=== PATIENT | male | born 1980 | race Caucasian/White ===

== ENCOUNTER → 2023-03-19 | Outpatient (CLI) | payer BC, SELFPAY ==
[2023-03-19 11:26] LABS: Hematocrit 48.3 % (40-54); Hemoglobin 15.4 g/dL (13.0-16.5)
[2023-03-19 12:09] LABS: AST(SGOT) 17 U/L (15-37); Alanine Aminotransfer ALT/SGPT 34 U/L (16-61); Albumin, Serum 3.8 g/dL (3.2-5.0); Alkaline Phosphatase 78 U/L (45-117); Anion Gap 6 (5-15); BUN 25 mg/dL (7-18); Chloride 103 mmol/L (98-107); Cholesterol 201 mg/dL (200); Creatinine, Serum 1.04 mg/dL (0.70-1.30); EST Glomerular Filtration Rate 83 mL/min (>60); Est Glom Filt Rate - Afr Amer 100 mL/min (>60); Follicle Stimulating Hormone 3.1 mIU/mL; Globulin 3.8 g/dL (2.2-4.2); Glucose 229 mg/dL (74-106); High Density Lipoprotein 34 mg/dL; Luteinizing Hormone 4.3 mIU/mL; PSA,Total - Annual Screen 1.01 ng/mL (0.00-4.00); Potassium 4.3 mmol/L (3.5-5.1); Protein, Total 7.6 g/dL (6.4-8.2); Sodium Level 136 mmol/L (136-145); Thyroid Stim Hormone (TSH) 1.14 uIU/mL (0.358-3.74); Triglycerides 333 mg/dL; Very Low Density Lipoprotein 67 mg/dL (5-40)
[2023-03-25 09:09] LABS: Sex Hormone-binding Globulin 14.6 nmol/L (16.5-55.9); Testosterone, % Free 2.56 % (1.50-4.20); Testosterone, Free 6.14 ng/dL (5.00-21.00); Testosterone, Total 240 ng/dL (264-916)
== END | disposition home or self-care (01) ==
LOC: LAB 10:55
PROVIDERS: Referring Provider Registered Nurse; Visit Provider Registered Nurse
DX: E29.1 Testicular hypofunction (principal); R53.83 Other fatigue; R68.82 Decreased libido; R63.5 Abnormal weight gain; R39.16 Straining to void; Z12.5 Encounter for screening for malignant neoplasm of prostate
CPT/HCPCS: 36415; 80053; 80061; 82627; 82670; 83001; 83002; 84146; 84153; 84270; 84402; 84403; 84443; 85014; 85018; 82626; G0103

== ENCOUNTER → 2023-08-11 | Outpatient (CLI) | payer BC, SELFPAY ==
[2023-08-11 13:51] LABS: Hemoglobin 15.8 g/dL (13.0-16.5)
[2023-08-11 15:16] LABS: ALB/GLOB Ratio 0.9 RATIO (0.9-2.4); AST(SGOT) 25 U/L (15-37); Alanine Aminotransfer ALT/SGPT 50 U/L (16-61); Albumin, Serum 3.7 g/dL (3.2-5.0); Alkaline Phosphatase 74 U/L (45-117); Anion Gap 6 (5-15); BUN 20 mg/dL (7-18); BUN/Creat Ratio 16.8 RATIO (10-20); Calcium,Total 9.1 mg/dL (8.5-10.1); Chloride 103 mmol/L (98-107); Cholesterol 155 mg/dL (200); Creatinine, Serum 1.19 mg/dL (0.70-1.30); EST Glomerular Filtration Rate 71 mL/min (>60); Est Glom Filt Rate - Afr Amer 86 mL/min (>60); Estradiol 49.6 pg/mL; Follicle Stimulating Hormone < 0.2 mIU/mL; Globulin 3.9 g/dL (2.2-4.2); Glucose 208 mg/dL (74-106); High Density Lipoprotein 24 mg/dL; Luteinizing Hormone < 0.2 mIU/mL; Potassium 4.2 mmol/L (3.5-5.1); Prolactin 8.6 ng/mL; Protein, Total 7.6 g/dL (6.4-8.2); Sodium Level 136 mmol/L (136-145); Thyroid Stim Hormone (TSH) 0.97 uIU/mL (0.358-3.74); Triglycerides 185 mg/dL; Very Low Density Lipoprotein 37 mg/dL (5-40)
[2023-08-20 18:07] LABS: Sex Hormone-binding Globulin 13.3 nmol/L (16.5-55.9); Testosterone, % Free 4.55 % (1.50-4.20); Testosterone, Free 58.51 ng/dL (5.00-21.00); Testosterone, Total 1286 ng/dL (264-916)
== END | disposition home or self-care (01) ==
PROVIDERS: Referring Provider Registered Nurse; Visit Provider Registered Nurse
DX: E29.1 Testicular hypofunction (principal); R53.83 Other fatigue; Z12.5 Encounter for screening for malignant neoplasm of prostate; R68.82 Decreased libido; R63.5 Abnormal weight gain; R35.0 Frequency of micturition; R39.16 Straining to void
CPT/HCPCS: 36415; 80053; 80061; 82627; 82670; 83001; 83002; 84146; 84270; 84402; 84403; 84443; 85014; 85018; 82626

== ENCOUNTER 2024-03-16 13:11 | Emergency (ER) | payer BC, SELFPAY ==
[2024-03-16 13:12] VITALS: BP 180/99; PULSE 117; RESP 18; TEMP 38.4; O2SAT 97; BMI 32.5
[2024-03-16 13:14] VITALS: BP 171/93; PULSE 113; RESP 25; TEMP 38.4; O2SAT 94
[2024-03-16 14:14] VITALS: BP 162/99; PULSE 121; RESP 21; O2SAT 95
--- NOTE | 2024-03-16 14:29 | EDS_ITS ---
HPI History of Present Illness Chief Complaint: Hypertension Informant: patient and spouse/S.O. Narrative Narrative: 43-year-old male presenting to the emergency room with a chief complaint of hypertension and tachycardia and fever. Patient states that he went to have a cataract removed as outpatient. He states that when they took his vital signs he was noted to be tachycardic and hypertensive. They did take his temperature and he was noted to be 102 degrees. He notes recently he has had congestion and cough. He denies any ear pain facial pain sore throat diarrhea vomiting or rash. No significant headache or neck pain. No sick contacts at home. He states he is otherwise been a very healthy individual with no history of hypertension. He denies any chest pain. [facility] Medical History (Updated 03/16/24 @ 14:[address] Matty Camilo DO) Cataract, right eye Allergy/AdvReac Type Severity Reaction Status Date / Time No Known Allergies Allergy Verified 03/16/24 13:12 Social History Smoking Status: Never smoker ROS ROS ED Constitutional Constitutional ED: Reports fever(s); Denies chills or weight loss Eyes Eyes: Denies change in vision or diplopia ENT ENT ED: Reports other Details: Nasal congestion ; Denies ear pain, rhinorrhea or sore throat Cardiovascular Cardiovascular: Denies chest pain, orthopnea, palpitations or racing heartbeat Respiratory/Chest Respiratory/Chest: Reports cough and sputum; Denies dyspnea or orthopnea Gastrointestinal Gastrointestinal: Denies abdominal pain, diarrhea, nausea or vomiting Genitourinary Genitourinary ED: Denies dysuria, hematuria or urinary frequency Musculoskeletal Musculoskeletal: Denies arthralgias or myalgias Integumentary Denies abscess or rash Neurologic Neurologic: Denies headache(s), paresthesias or weakness Psychiatric Psychiatric: Denies anxiety, depression, suicidal ideation or suicidal thoughts Endocrine Endocrinology: Denies polydipsia, polyphagia or polyuria Allergic/Immunologic Allergic/Immunologic ED: Denies mouth swelling, tongue swelling or urticaria EXAM Physical Exam Const Vital Signs: 03/16/24 13:11 03/16/24 13:12 03/16/24 13:14 Temperature 101.2 F H 101.2 F H Temperature Source Oral Oral Pulse Rate 117 H 113 H Respiratory Rate 18 25 H Respiratory Effort Normal Non-Labored Respiratory Pattern Normal Blood Pressure 180/99 H 171/93 H Blood Pressure Mean 126 119 Pulse Ox 97 94 Oxygen Delivery Method Room Air Room Air 03/16/24 14:14 Temperature Temperature Source Pulse Rate 121 H Respiratory Rate 21 H Respiratory Effort Respiratory Pattern Blood Pressure 162/99 H Blood Pressure Mean 120 Pulse Ox 95 Oxygen Delivery Method Room Air Positive well nourished and well developed General Appearance ED: well developed and NAD HEENT Reports normocephalic, head/scalp atraumatic and moist mucous membranes Eyes PERRL and EOMs intact bilaterally Neck no lymphadenopathy, supple and no JVD Resp normal respiratory effort and clear to auscultation bilaterally Cardio regular rate, regular rhythm and no murmurs GI normal to inspection, nondistended, normoactive bowel sounds and non-tender Palpation: soft Back/Spine no CVA tenderness and normal ROM Extremity normal to inspection General Extremety ED: Negative for edema General Extremity: Negative for edema Neuro oriented x3 and CN's II-XII intact bilaterally Sensorium / Orientation: alert Motor Exam: strength 5/5 throughout Psych mental status grossly normal Mood & Affect: Negative for depressed or tearful Skin no rashes or lesions noted and no wounds Discharge Plan Triage Chief Complaint: Hypertension ED Provider: Matty Camilo Dx/Rx/DC Orders Primary Care Provider: Care Physician,No Primary Referrals: Care Physician,No Primary [Primary Care Provider] - Print Language: Frisian
[2024-03-16] MEDS: Ibuprofen 600 MG Tablet PO (14:31)
[2024-03-16] MEDS: Acetaminophen 325 MG Tablet 650 MG PO (14:32)
[2024-03-16 14:34] VITALS: BP 141/109; PULSE 113; RESP 28; TEMP 38.4; O2SAT 98
--- NOTE | 2024-03-16 14:41 | RAD_ITS ---
STUDY: X-RAY CHEST REASON FOR EXAM: Male, 43 years old. Fever and cough TECHNIQUE: PA and lateral views of the chest. COMPARISON: None. FINDINGS: EKG electrodes are seen. Right upper lobe consolidation. Radiographic follow-up recommended. There is no demonstrated pleural abnormality. Normal size heart. Normal mediastinum and marie. Normal visualized pulmonary arteries. Normal visualized aortic arch and descending thoracic aorta. Normal visualized thoracic spine. Normal visualized ribs, clavicles, and shoulders. There is no demonstrated abnormality of the visualized soft tissue structures of the upper abdomen. RAD/Chest PA and Lateral IMPRESSION: Right upper lobe consolidation. Radiographic follow-up is recommended. Electronically Signed: Rufino Rivera MD at 14:55 EDT ,
[2024-03-16 15:00] VITALS: BP 126/100; PULSE 108; RESP 29; TEMP 38.3; O2SAT 94
--- NOTE | 2024-03-16 16:16 | EX.ED.DYSGE1 ---
HPI History of Present Illness Chief Complaint: Hypertension Informant: patient and spouse/S.O. Narrative Narrative: 43-year-old male referred to the emergency department for outpatient surgical center. Patient went in to have a right cataract removal. He was found to be hypertensive tachycardic and eventually febrile. He notes several days of cough and congestion. He denies dyspnea. No vomiting no diarrhea no sore throat no rashes. He states he is otherwise a very healthy individual currently taking medications. [facility] Medical History Cataract, right eye Home Medications ?Medication ?Instructions ?Recorded ?Last Taken ?Type albuterol sulfate 90 mcg/actuation 2 puff inhalation Q4H PRN PRN 03/16/24 Unknown Rx aerosol inhaler (Ventolin HFA) Wheezing ##1 doxycycline monohydrate 100 mg 100 mg PO BID #20 CAPSULES 03/16/24 Unknown Rx capsule Allergy/AdvReac Type Severity Reaction Status Date / Time No Known Allergies Allergy Verified 03/16/24 13:12 Social History Smoking Status: Never smoker ROS ROS ED Constitutional Constitutional ED: Reports fever(s); Denies chills or weight loss Eyes Eyes: Denies change in vision or diplopia ENT ENT ED: Reports other Details: Congestion ; Denies ear pain, rhinorrhea or sore throat Cardiovascular Cardiovascular: Denies chest pain, orthopnea, palpitations or racing heartbeat Respiratory/Chest Respiratory/Chest: Reports cough and sputum; Denies dyspnea or orthopnea Gastrointestinal Gastrointestinal: Denies abdominal pain, diarrhea, nausea or vomiting Genitourinary Genitourinary ED: Denies dysuria, hematuria or urinary frequency Musculoskeletal Musculoskeletal: Denies arthralgias or myalgias Integumentary Denies abscess or rash Neurologic Neurologic: Denies headache(s) or weakness Psychiatric Psychiatric: Denies anxiety, depression, suicidal ideation or suicidal thoughts Endocrine Endocrinology: Denies polydipsia, polyphagia or polyuria Allergic/Immunologic Allergic/Immunologic ED: Denies mouth swelling, tongue swelling or urticaria EXAM Physical Exam Const Vital Signs: 03/16/24 13:11 03/16/24 13:12 03/16/24 13:14 Temperature 101.2 F H 101.2 F H Temperature Source Oral Oral Pulse Rate 117 H 113 H Respiratory Rate 18 25 H Respiratory Effort Normal Non-Labored Respiratory Pattern Normal Blood Pressure 180/99 H 171/93 H Blood Pressure Mean 126 119 Pulse Ox 97 94 Oxygen Delivery Method Room Air Room Air 03/16/24 14:14 03/16/24 14:34 03/16/24 15:00 Temperature 101.1 F H 101 F H Temperature Source Oral Oral Pulse Rate 121 H 113 H 108 H Respiratory Rate 21 H 28 H 29 H Respiratory Effort Respiratory Pattern Blood Pressure 162/99 H 141/109 H 126/100 H Blood Pressure Mean 120 119 108 Pulse Ox 95 98 94 Oxygen Delivery Method Room Air Room Air Room Air Positive well nourished and well developed General Appearance ED: well developed and NAD HEENT Reports normocephalic, head/scalp atraumatic and moist mucous membranes Eyes PERRL and EOMs intact bilaterally Neck no lymphadenopathy, supple and no JVD Resp normal respiratory effort and clear to auscultation bilaterally Cardio regular rate, regular rhythm and no murmurs Rate: tachycardic GI normal to inspection, nondistended, normoactive bowel sounds and non-tender Palpation: soft Back/Spine no CVA tenderness and normal ROM Extremity normal to inspection General Extremety ED: Negative for edema General Extremity: Negative for edema Neuro oriented x3 and CN's II-XII intact bilaterally Sensorium / Orientation: alert Motor Exam: strength 5/5 throughout Psych mental status grossly normal Mood & Affect: Negative for depressed or tearful Skin no rashes or lesions noted and no wounds MDM MDM MDM Narrative Medical decision making narrative: Differential diagnosis includes viral syndrome pneumonia pleural effusion Patient is relatively asymptomatic. I personally have counted his respirations at 17. He is not hypoxic. After Tylenol Motrin his fever has broke. My independent interpretation of the chest x-ray is right upper lobe infiltrate. COVID influenza and RSV swabs were negative. I do not believe we need to start the patient on antihypertensives. I think it would be reasonable to allow him to get over this illness and see where his blood pressure is at before that occurs. I will be placing him on doxycycline as well as albuterol MDI. Him and his understand return instructions History & Record Review Discussion w/independent historian: Patient and Significant other Lab Data Attestation: I reviewed the patient's lab results. Radiography Diagnostic Testing: Clinical Impression(s) from Imaging Studies Chest X-Ray 03/16/24 14:41 IMPRESSION: Right upper lobe consolidation. Radiographic follow-up is recommended. Electronically Signed: Rufino Rivera MD at 14:55 EDT , Discharge Plan Triage Chief Complaint: Hypertension ED Provider: Matty Camilo Dx/Rx/DC Orders Clinical Impression: Pneumonia, Hypertension Instructions: ED Hypertension, To Be Confirmed, ED Pneumonia (Adult) Prescriptions: New doxycycline monohydrate 100 mg capsule 100 mg PO BID Qty: 20 0RF albuterol sulfate [Ventolin HFA] 90 mcg/actuation HFA aerosol inhaler 2 puff inhalation Q4H PRN PRN (Reason: Wheezing) Qty: 1 0RF Rx Instructions: dispense with spacer Primary Care Provider: Care Physician,No Primary Referrals: Care Physician,No Primary [Primary Care Provider] - Print Language: Maltese Disposition Disposition: Home, Self Care
== END 2024-03-16 16:20 | disposition home or self-care (01) ==
PROVIDERS: Emergency Provider Emergency Medicine; Visit Provider Emergency Medicine
DX: J18.9 Pneumonia, unspecified organism (principal); I10 Essential (primary) hypertension
CPT/HCPCS: 71046; 87631; 99282; A4216